=== PATIENT | male | born 1985 | race Hispanic/Latino ===

== ENCOUNTER 2023-10-19 22:39 | Emergency (ER) | payer SELFPAY ==
[2023-10-19 22:45] VITALS: BP 130/95
--- NOTE | 2023-10-19 23:42 | ED.GENMED ---
History of Present Illness
General
Chief Complaint: Abdominal Symptoms
Source: patient
Time Seen by Provider: 10/19/23 23:31
Travel History
Have you had any contact with someone who has COVID-19?: No
Do you have any symptoms of coronavirus? Fever > 100 degrees, chills, cough, shortness of breath, sore throat, loss of taste or smell, muscle aches, or headache?: No
History of Present Illness
History of Present Illness:
37-year-old male with known medical history of alcohol abuse, well-known to this emergency, uses 2 different names when coming to this emergency stating tonight he has had nausea vomiting and diarrhea for the last few days, chills and generally
feeling unwell. Patient that he continues to drink all daily stating he had 2 drinks this evening. No known sick contacts, recent travel or recent antibiotics. Patient has no other physical concerns. He has been seen by our [facility] and case
management team multiple times on previous visits and has declined treatment or has been ineligible for any further treatment in the past
Past History
Past History
ED Past Medical History: Other (Left ankle fracture September 2017)
ED Past Surgical History: None
Social History
Tobacco: Non-smoker
Alcohol: Chronic alcoholic
Drug: None
Personal:
Living: with family
Employment: Employed
Family History
Family History: Other (Noncontributory)
Review of Systems
Review of Systems
All Other Systems: ROS reviewed and negative except as documented in HPI and ROS
Phy Exam
Physical Exam
Physical Exam:
GENERAL: Alert , in no apparent distress, intoxicated
EYE: clear conjunctiva b/l
HEAD: NCAT
ENT: o/p clr, mmm.
CARDIAC: Regular rate and rhythm .
LUNGS: Clear breath sounds bilaterally, no acute respiratory distress, no wheezes/rales/rhonchi
ABDOMEN: Soft, without focal tenderness, no r/g, no cvat
NEUROLOGICAL: Alert and oriented
SKIN: Warm and dry, skin intact.
MUSCULOSKELETAL: No edema, well perfused.
PSYCH: Normal and appropriate interaction.
Course
Orders/Labs/Results
Orders:
Orders
10/19/23 23:36
0.9% Sodium Chloride 1000 ml [Nss] 1,000 ml IV BOLUS
10/19/23 23:57
Complete Blood Count/With Diff Urgent
Comprehensive Metabolic Panel Urgent
Lipase Urgent
Abnormal Lab Results
10/19/23
23:57
RBC 4.67 L 10^6/uL
(4.70-6.10)
Hgb 12.6 L g/dL
(13.0-18.0)
Hct 36.8 L %
(39.0-52.0)
MCV 78.8 L fL
(80.0-94.0)
RDW 16.0 H %
(11.5-14.5)
Potassium 3.3 L mmol/L
(3.5-5.1)
BUN 5 L mg/dl
(9-20)
Creatinine 0.5 L mg/dL
(0.7-1.3)
Glucose 150 H mg/dl
(70-99)
AST 72 H U/L
(17-59)
ALT 84 H U/L
(0-50)
Total Protein 8.3 H g/dl
(6.3-8.2)
10/19/23 23:57
10/19/23 23:57
Vital Signs
Initial and Last Documented VS:
Initial Vital Signs
Temp Pulse Resp BP Pulse Ox
98.6 F 105 18 130/95 96
10/19/23 22:45 10/19/23 22:45 10/19/23 22:45 10/19/23 22:45 10/19/23 22:45
Last Documented Vital Signs
Temp Pulse Resp BP Pulse Ox
98.6 F 105 18 130/95 96
10/19/23 22:45 10/19/23 22:45 10/19/23 22:45 10/19/23 22:45 10/19/23 22:45
MDM/Problems Addressed
Differential Diagnosis Includes:
Alcohol abuse, alcoholic gastritis, GERD, pancreatitis
MDM/Problems Addressed:
37-year-old male presenting emergency department for evaluation of reported nausea vomiting and diarrhea. Patient has been seen here multiple times for similar. He arrives clearly intoxicated and his symptoms are still likely related to his
chronic alcohol use. Will check labs and treat with 1 L of IV fluids. Anticipate discharge following completion of fluids.
*Pulse Oximetry
Patient hypoxic: no
*Critical Care Note
Total Time (30-74mins, 75-104mins- exclusive of procedures): Not Applicable
Data Reviewed
Review of Other/Old Records Reveals: Labs and Records
Source: patient and records
Comment
Comment:
Patient's labs baseline. Mild LFT elevation secondary to chronic alcohol use. Patient tolerating p.o. Remains hemodynamically stable. Stable for discharge home.
ED Attending Note
-
Portions of this chart may have been created with voice recognition software.� Occasional wrong word or��sound alike� substitutions may have occurred due to the inherent limitations of voice recognition software.
Discharge Plan
Departure
Patient Disposition: Home (Routine Discharge)
Date of Disposition: 10/20/23
Time of Disposition: 00:20
Patient with high blood pressure during this ER visit?: Yes
Discharge Problem:
Abdominal pain
Instructions: Abdominal Pain
Referrals:
[facility] [Outside]
UNKNOWN - PT DOES,NOT KNOW [Family Provider] -
Interventions
Interventions:
*Risk Screen - Suicide Last Done: 10/19/23 22:45
*General Assessment Last Done: 10/19/23 22:45
*Neglect/Abuse Screening Last Done: 10/19/23 22:45
*ED COVID-19 Vaccine History Last Done: 10/20/23 00:01
MP-[facility]wybz-Ljkepdoah[facility] Assessment Last Done: 10/20/23 00:01
[2023-10-19] MEDS: NSS 1000 IV (23:57)
[2023-10-20 00:01] VITALS: BMI 28.0
[2023-10-20 00:06] LABS: % Basophils 0.8 % (0-2); % Eosinophils 0.6 % (0-6); % Immature Granulocytes 0.3 % (0-0.5); % Monocytes 8.9 % (1.7-9.3); % Neutrophils 47.4 % (42.2-75.2); Absolute Basophils 0.1 10^3/uL (0-0.2); Absolute Monocytes 0.6 10^3/uL (0.1-0.6); Absolute Neutrophils 3.4 10^3/uL (1.4-6.5); Hematocrit 36.8 % (39.0-52.0); Hemoglobin 12.6 g/dL (13.0-18.0); Mean Corp Hgb Conc. 34.2 g/dL (33.0-37.0); Mean Corpuscular Volume 78.8 fL (80.0-94.0); Mean Platelet Volume 8.8 fL (7.4-10.4); Nucleated Red Blood Cells % 0 % (-); Platelet Count 295 10^3/uL (130-400); Red Blood Cell Count 4.67 10^6/uL (4.70-6.10); White Blood Cell Count 7.2 10^3/uL (4.8-10.8)
[2023-10-20 00:19] LABS: ALT (SGPT) 84 U/L (0-50); AST (SGOT) 72 U/L (17-59); Albumin 4.8 g/dl (3.5-5.0); Alkaline Phosphatase 103 U/L (38-126); Blood Urea Nitrogen 5 mg/dl (9-20); Calcium 9.1 mg/dl (8.4-10.2); Carbon Dioxide 23 mmol/L (22-30); Chloride 107 mmol/L (98-107); Estimated Creatinine Clearance > 125 ml/min; Glucose 150 mg/dl (70-99); Lipase 106 U/L (23-300); Potassium 3.3 mmol/L (3.5-5.1); Sodium 143 mmol/L (135-145); Total Bilirubin 0.4 mg/dl (0.2-1.3); Total Protein 8.3 g/dl (6.3-8.2); eGFR > 60.00
== END 2023-10-20 00:25 | disposition home or self-care (01) ==
LOC: EMR 22:39
PROVIDERS: Physician Assistant Medical; EMERGENCY PHYSICIAN Emergency Medicine
DX: R10.9 Unspecified abdominal pain (principal); R11.2 Nausea with vomiting, unspecified; R19.7 Diarrhea, unspecified; R03.0 Elevated blood-pressure reading, without diagnosis of hypertension; F10.90 Alcohol use, unspecified, uncomplicated
CPT/HCPCS: 99284; 80053; 83690; 85025

== ENCOUNTER 2024-08-04 10:31 | Inpatient (IN) | payer MEDICAID, SELFPAY ==
[2024-08-04] VITALS (9 sets, daily range): BP systolic 109–130; BP diastolic 70–97; BMI 23.4
[2024-08-04 03:09] LABS: Hematocrit 39.7 % (39.0-52.0); Hemoglobin 14.4 g/dL (13.0-18.0); Mean Corp Hgb Conc. 36.3 g/dL (33.0-37.0); Mean Corpuscular Hgb 28.8 pg (27.0-31.0); Mean Corpuscular Volume 79.4 fL (80.0-94.0); Mean Platelet Volume 10.5 fL (7.4-10.4); Platelet Count 240 10^3/uL (130-400); White Blood Cell Count 9.7 10^3/uL (4.8-10.8)
[2024-08-04 03:20] LABS: Blood Urea Nitrogen 16 mg/dl (9-20); Calcium 9.9 mg/dl (8.4-10.2); Carbon Dioxide 16 mmol/L (22-30); Chloride 95 mmol/L (98-107); Glucose 598 mg/dl (70-99); Potassium 3.6 mmol/L (3.5-5.1); Sodium 133 mmol/L (135-145); eGFR > 60.00
[2024-08-04] MEDS: NSS 1000 IV ×3 (05:01→06:15)
[2024-08-04 05:50] LABS: Blood Urea Nitrogen 14 mg/dl (9-20); Carbon Dioxide 22 mmol/L (22-30); Chloride 95 mmol/L (98-107); Glucose 485 mg/dl (70-99); Potassium 3.8 mmol/L (3.5-5.1); Sodium 134 mmol/L (135-145); eGFR > 60.00
[2024-08-04 05:57] LABS: B-Hydroxybutyrate 2.85 mmol/L (0.02-0.27)
--- NOTE | 2024-08-04 06:12 | ED.GENMED ---
History of Present Illness
General
Chief Complaint: Blood Sugar Problem
Source: patient
Exam Limitations: none
Time Seen by Provider: 08/04/24 06:07
Nursing documentation reviewed up to this point in time: agreed with
History of Present Illness
History of Present Illness:
Pleasant 38-year-old male with a history of diabetes and alcohol abuse presents to the emergency department with lightheadedness and nosebleeds. Patient admits to being a former alcoholic but states he has not had a drink in 3 months. Patient
denies fever or chills. History is limited due to patient's condition. Patient is a very poor historian.
Past History
Past History
ED Past Medical History: Other (Left ankle fracture September 2017)
ED Past Surgical History: None
Social History
Tobacco: Non-smoker
Alcohol: Chronic alcoholic
Drug: None
Personal:
Living: with family
Employment: Employed
Family History
Family History: Other (Noncontributory)
Review of Systems
Review of Systems
Allergies reviewed?: Yes
All Other Systems: ROS reviewed and negative except as documented in HPI and ROS
Constitutional: Reports fatigue and night sweats
EENT: Reports no symptoms
Respiratory: Reports no symptoms
Cardiac: Reports no symptoms
ABD/GI: Reports no symptoms
: Reports no symptoms
Musculoskeletal: Reports no symptoms
Skin: Reports no symptoms
Neurological: Reports no symptoms
Endocrine: Reports no symptoms
Hematologic/Lymphatic: Reports no symptoms
Psychiatric: Reports anxiety
Phy Exam
General Physical Exam
General Presentation: well appearing and no apparent distress
General Skin: warm and dry
General Habitus: normal
General Mental: alert
General Hydration: appears well hydrated
ENT Exam
ENT Exam: EOMI, pharynx normal, neck supple and normocephalic
Eye Exam
Eye Exam: PERRL, cornea clear and conjunctiva normal
Cardiovascular Exam
Cardiovascular Exam: regular rate/rhythm, no edema, no murmur and normal peripheral pulses
Pulmonary Exam
Pulmonary Exam: lungs clear, no respiratory distress, no rales, no crackles, no rhonchi, no stridor, no wheezing and no cough
Gastrointestinal Exam
Gastrointestinal Exam: normal bowel sounds, non tender, soft, no organomegaly, no pulsatile mass and non distended
Neurological Exam
Neurological Exam: alert, oriented x3, no motor deficits and speech normal
Musculoskeletal Exam
Musculoskeletal Exam: full ROM and no edema
Skin Exam
Skin Exam: normal color, warm/dry, no rash and no petechia
Psychiatric Exam
Psychiatric Exam: normal mood/affect
Course
Orders/Labs/Results
Orders:
Orders
08/04/24 02:18
BMP [Basic Metabolic Panel] Urgent
Complete Blood Count/No Diff Urgent
08/04/24 04:34
Urinalysis Urgent
0.9% Sodium Chloride 1000 ml [Nss] 1,000 ml IV BOLUS
0.9% Sodium Chloride 1000 ml [Nss] 1,000 ml IV BOLUS
08/04/24 04:35
Bedside Glucose- Treatment Q1H
IV Insert/Care/Rem.- Treatment PRN
08/04/24 04:52
B-Hydroxybutyrate Urgent
Basic Metabolic Panel Q2H
Glycohemoglobin (HgbA1c) Urgent
08/04/24 06:10
Insulin Human Regular [Novolin R] 6 units IV NOW STA
08/04/24 06:11
Bedside Glucose- Treatment Q1H
IV Insert/Care/Rem.- Treatment PRN
08/04/24 06:14
0.9% Sodium Chloride 1000 ml [Nss] 1,000 ml IV ONCE
08/04/24 06:15
Basic Metabolic Panel Q2H
08/04/24 06:45
Basic Metabolic Panel Q2H
08/04/24 08:15
Basic Metabolic Panel Q2H
08/04/24 08:45
Basic Metabolic Panel Q2H
08/04/24 10:15
Basic Metabolic Panel Q2H
Abnormal Lab Results
08/04/24 08/04/24
02:18 04:52
MCV 79.4 L fL
(80.0-94.0)
MPV 10.5 H fL
(7.4-10.4)
Sodium 133 L mmol/L 134 L mmol/L
(135-145) (135-145)
Chloride 95 L mmol/L 95 L mmol/L
(98-107) (98-107)
Carbon Dioxide 16 L mmol/L
(22-30)
Creatinine 0.5 L mg/dL 0.4 L mg/dL
(0.7-1.3) (0.7-1.3)
Glucose 598 H* mg/dl 485 H* mg/dl
(70-99) (70-99)
B-Hydroxybutyrate 2.85 H mmol/L
(0.02-0.27)
08/04/24 02:18
Vital Signs
Initial and Last Documented VS:
Initial Vital Signs
Temp Pulse Resp BP Pulse Ox
99.6 F 122 22 130/94 97
08/04/24 02:08 08/04/24 02:08 08/04/24 02:08 08/04/24 02:08 08/04/24 02:08
Last Documented Vital Signs
Temp Pulse Resp BP Pulse Ox
99.6 F 97 19 111/81 98
08/04/24 02:08 08/04/24 05:15 08/04/24 05:15 08/04/24 05:00 08/04/24 05:15
MDM/Problems Addressed
Chronic conditions affecting care:
Alcoholism, diabetes
Chronic conditions affecting care: DM
*Pulse Oximetry
Patient hypoxic: no
*Critical Care Note
Total Time (30-74mins, 75-104mins- exclusive of procedures): 30
comment:
Critical care statement: A total of 30 minutes of critical care time was provided for this patient. This time is separate from time utilized to perform the aforementioned documented procedures. Aggregate critical care time includes only time
during which I was engaged in work directly related to the patient's care, as described above, whether at the bedside or elsewhere in the Emergency Department.
Data Reviewed
Review of Other/Old Records Reveals: Labs and Records
Source: patient and staff auditor
ED Attending Note
-
Portions of this chart may have been created with voice recognition software.� Occasional wrong word or��sound alike� substitutions may have occurred due to the inherent limitations of voice recognition software.
Discharge Plan
Departure
Patient Disposition: Admit
Date of Disposition: 08/04/24
Time of Disposition: 07:02
Admit to: ICU
Presentation/result/management discussed w/ accepting MD/DO: Hospitalist
Discharge Problem:
DKA (diabetic ketoacidosis)
Instructions: Type 2 Diabetes (DC)
Prescriptions:
No Action
No Current Medications
0
Referrals:
NONE,* [Family Provider] -
Interventions
Interventions:
*Risk Screen - Suicide Last Done: 08/04/24 02:08
*General Assessment Last Done: 08/04/24 05:00
*Neglect/Abuse Screening Last Done: 08/04/24 02:08
ED- Fall Risk Assessment Last Done: 08/04/24 05:00
*ED COVID-19 Vaccine History Last Done: 08/04/24 05:00
ED- Neurological Assessment Last Done: 08/04/24 05:00
ED-EENT Assessment Last Done: 08/04/24 05:29
ED- Cardiac Assessment Last Done: 08/04/24 05:00
ED Swallowing Screen Last Done: 08/04/24 05:29
Discharge Date and Time
Print Language: CAMEROONIAN
[2024-08-04] MEDS: NOVOLIN R 6 UNITS IV (06:17)
[2024-08-04 07:38] LABS: Venous Blood Gas B.E. -3.8 mmol/L (-4 to +4); Venous Blood Gas HCO3 21.5 mmol/L (22-27); Venous Blood Gas O2 Sat % 99.4 %; Venous Blood Gas pCO2 39 mmHg (35-48); Venous Blood Gas pH 7.35 (7.32-7.43); Venous Blood Gas pO2 183 mmHg (30-50)
[2024-08-04 07:38] LABS: Alcohol None Detected; Blood Urea Nitrogen 11 mg/dl (9-20); Calcium 8.2 mg/dl (8.4-10.2); Carbon Dioxide 21 mmol/L (22-30); Chloride 105 mmol/L (98-107); Glucose 322 mg/dl (70-99); Lipase 229 U/L (23-300); Potassium 3.7 mmol/L (3.5-5.1); Sodium 138 mmol/L (135-145); eGFR > 60.00
[2024-08-04 07:56] LABS: COVID-19 Antigen Negative (Negative)
--- NOTE | 2024-08-04 08:13 | HPS.HSE ---
Addendum entered and electronically signed by Ge Gee MD 08/04/24 12:55:
#nasal bleeds 2/2 nasal spur
Outpatient ENT
Original Note:
Family Physician
-
Family Physician: * NONE
Chief Complaint
-
nosebleeds
History of Present Illness
38yo M with PMHx of alcohol abuse came with c/o nosebleeds, recurent not precipitated by trauma. No nosebleed seen on assessment. Found hyperglycemic in ED without significant acidosis. No PMHX of diabetes.
Patient does report years of intermittent nosebleeds. No family hx of bleeding d/o. He lives in [facility] and visiting here for friends, however after arrival to the area - he cannot get in touch with them. Was not eating well over past few days.
Patient denied alcohol use for past month
Medical History
Past Medical History
Past Medical History: Reports Other
Additional Past Medical History:
see HPI
Past Surgical History: Reports None
Social History
Tobacco: Non-smoker
Alcohol: Chronic Alcoholic
Drug: None
Family History
Family History: Not pertinent
Allergies / Home Medications
Allergies reflects when Allergies were last updated in [facility].
Home Medications with original date entered in [facility]
Allergy/Medication List:
Allergies
Allergy/AdvReac Type Severity Reaction Status Date / Time
No Known Allergies Allergy Verified 08/04/24 02:12
Home Medications
No Meds [No Current Medications] 08/04/24
Review of Systems
-
A 12 point ROS was completed and negative except as noted: Yes
Constitutional: Reports No Symptoms
EENT: Reports See HPI
Physical Exam
Vital Signs
Vital Signs
Temp Pulse Resp BP Pulse Ox
99.6 F 84 19 112/86 98
08/04/24 02:08 08/04/24 07:45 08/04/24 07:30 08/04/24 07:00 08/04/24 07:45
Physical Exam
General: Well Developed, Well Nourished and No Apparent Distress
HEENT: NormoCephalic, Anicteric and Moist mucous membranes
Respiratory: Clear; No Wheezes, Rales or Rhonchi
Cardiac: S1/S2 and Regular Rhythm; No Murmur
GI: Soft, Non Tender and Non Distended
Rectal: No Red or Maroon Stools
Genito-urinary: Clear Urine
Musculoskeletal: No Clubbing, No Cyanosis and No Edema
Skin: Warm; No Dry, Rash or Jaundice
Neuro: Awake, Alert, Oriented, AO x 3 and No Motor Deficits
Psych: Calm
Laboratory Results
-
08/04/24 02:18
Laboratory Results
Lipase 229 U/L (23-300) 08/04/24 07:12
Data Reviewed
-
Lab Data: Labs Reviewed by me
Impression/Plan
-
A/P:
#Ketosis without aidosis with hyperglycemia
Insulin SS, Accuchecks, check HGBA1c, start DM diet
Check serum alcohol level
start Lantus 5units
home regimen based on HgbA1c
DM RN consult
#Frequent nosebleeds
check coagulation panel
Check CT of the sinuses
#Alcohol abuse
check Urine drug screen
If alcohol level elevated - MSAS protocol
start thiamine/Folate
multivitamins
#Hx of transaminitis
check HepC Ab
follow LFT
#Dizziness without vertigo
PT/OT
DVT ppx SCDs
Full code
I have spent at least 79min reviewing chart, test results, communication with cosnultants and direct patient care
[2024-08-04 08:23] LABS: ALT (SGPT) 37 U/L (0-50); AST (SGOT) 33 U/L (17-59); Alkaline Phosphatase 217 U/L (38-126); Direct Bilirubin 0.1 mg/dl (0.0-0.4); Total Bilirubin 0.3 mg/dl (0.2-1.3); Total Protein 6.6 g/dl (6.3-8.2)
[2024-08-04] MEDS: LANTUS 0.05 UNITS SC (08:43)
[2024-08-04 08:49] LABS: Glucose - Point of Care 294 mg/dl (70-99)
[2024-08-04 09:17] LABS: Blood Urea Nitrogen 9 mg/dl (9-20); Calcium 8.2 mg/dl (8.4-10.2); Carbon Dioxide 20 mmol/L (22-30); Chloride 103 mmol/L (98-107); Estimated Creatinine Clearance > 125 ml/min; Glucose 297 mg/dl (70-99); Potassium 3.7 mmol/L (3.5-5.1); Sodium 136 mmol/L (135-145); eGFR > 60.00
[2024-08-04 09:24] LABS: INR 0.97; PT 13.3 Sec (11.4-14.6)
[2024-08-04 09:25] LABS: APTT 25.2 Sec (23.4-35.0)
[2024-08-04 09:26] LABS: Urine Albumin Negative (Neg - Trace); Urine Bilirubin Negative (Negative); Urine Character Clear (Clear); Urine Color Yellow; Urine Glucose 3+ (Negative); Urine Ketone 3+ (Negative); Urine Leukocyte Negative (Negative); Urine Nitrite Negative (Negative); Urine Occult Blood Negative (Negative); Urine Specific Gravity 1.015 (<1.030); Urine Urobilinogen Negative (Neg - 1+)
[2024-08-04 09:45] LABS: Amphetamines Negative (Negative); Barbiturates Negative (Negative); Benzodiazepines Negative (Negative); Buprenorphine Negative (Negative); Cocaine Negative (Negative); Marijuana Negative (Negative); Methadone Negative (Negative); Methamphetamines Negative (Negative); Opiates Negative (Negative); Phencyclidine Negative (Negative); Tricyclic Antidepressants Negative (Negative)
[2024-08-04 10:41] LABS: Glycohemoglobin (HgbA1c) 15.4 % (4.0-5.6)
[2024-08-04 12:00] LABS: Glucose - Point of Care 251 mg/dl (70-99)
[2024-08-04] MEDS: NOVOLOG FLEXPEN-MODERATE RESISTANCE 5 UNITS SC (12:02)
[2024-08-04 12:29] LABS: Blood Urea Nitrogen 7 mg/dl (9-20); Calcium 8.4 mg/dl (8.4-10.2); Carbon Dioxide 20 mmol/L (22-30); Chloride 104 mmol/L (98-107); Estimated Creatinine Clearance > 125 ml/min; Glucose 255 mg/dl (70-99); Potassium 3.8 mmol/L (3.5-5.1); Sodium 137 mmol/L (135-145); eGFR > 60.00
[2024-08-04] MEDS: LR 1000 IV (14:24)
[2024-08-04 15:56] LABS: Venous Blood Gas B.E. -1.9 mmol/L (-4 to +4); Venous Blood Gas HCO3 22.2 mmol/L (22-27); Venous Blood Gas O2 Sat % 98.1 %; Venous Blood Gas pCO2 35 mmHg (35-48); Venous Blood Gas pH 7.41 (7.32-7.43); Venous Blood Gas pO2 145 mmHg (30-50)
[2024-08-04 16:09] LABS: Blood Urea Nitrogen 7 mg/dl (9-20); Calcium 8.7 mg/dl (8.4-10.2); Carbon Dioxide 21 mmol/L (22-30); Chloride 101 mmol/L (98-107); Estimated Creatinine Clearance > 125 ml/min; Glucose 307 mg/dl (70-99); Potassium 3.7 mmol/L (3.5-5.1); Sodium 135 mmol/L (135-145); eGFR > 60.00
[2024-08-04 16:15] LABS: B-Hydroxybutyrate 2.39 mmol/L (0.02-0.27)
[2024-08-04 16:53] LABS: Glucose - Point of Care 242 mg/dl (70-99)
--- NOTE | 2024-08-04 17:30 | PTCARENOTE ---
Pt admitted into room 428. Pt ambulated with standby assist and steady gait. Pt instructed to use call dominguez to ring for assistance when getting OOB. VSS. Pt oriented to room. Blood sugar 242.
[2024-08-04] MEDS: NOVOLOG FLEXPEN-HIGH RESISTANCE 4 UNITS SC (17:43)
[2024-08-04] MEDS: NOVOLOG FLEXPEN 5 UNITS SC (17:43)
[2024-08-04 21:04] LABS: Glucose - Point of Care 292 mg/dl (70-99)
[2024-08-04] MEDS: LANTUS 0.1 UNITS SC (21:33)
[2024-08-05] MEDS: LR IV ×2 (01:58→14:53)
[2024-08-05] MEDS: LR 1000 IV (01:58)
[2024-08-05 07:42] VITALS: BP 99/72
[2024-08-05 07:57] LABS: Glucose - Point of Care 211 mg/dl (70-99)
[2024-08-05 08:45] VITALS: BP 118/75; PULSE 80; O2SAT 100
[2024-08-05 08:53] LABS: Hematocrit 36.9 % (39.0-52.0); Hemoglobin 12.9 g/dL (13.0-18.0); Mean Corpuscular Hgb 28.5 pg (27.0-31.0); Mean Corpuscular Volume 81.5 fL (80.0-94.0); Mean Platelet Volume 10.4 fL (7.4-10.4); Platelet Count 197 10^3/uL (130-400); Red Blood Cell Count 4.53 10^6/uL (4.70-6.10); Red Cell Dist. Width 14.4 % (11.5-14.5); White Blood Cell Count 5.2 10^3/uL (4.8-10.8)
[2024-08-05] MEDS: NOVOLOG FLEXPEN-HIGH RESISTANCE 4 UNITS SC (08:58)
[2024-08-05] MEDS: FOLVITE 1 MG PO (09:02)
[2024-08-05] MEDS: VITAMIN B1 100 MG PO (09:02)
[2024-08-05] MEDS: THERAGRAN 1 TABLET PO (09:02)
[2024-08-05] MEDS: NOVOLOG FLEXPEN 5 UNITS SC ×2 (09:04→12:40)
[2024-08-05 09:30] LABS: ALT (SGPT) 42 U/L (0-50); AST (SGOT) 46 U/L (17-59); Albumin 3.8 g/dl (3.5-5.0); Alkaline Phosphatase 105 U/L (38-126); Blood Urea Nitrogen 8 mg/dl (9-20); Calcium 8.7 mg/dl (8.4-10.2); Carbon Dioxide 24 mmol/L (22-30); Chloride 99 mmol/L (98-107); Estimated Creatinine Clearance > 125 ml/min; Glucose 219 mg/dl (70-99); Magnesium 1.7 mg/dl (1.6-2.3); Sodium 134 mmol/L (135-145); Total Bilirubin 0.7 mg/dl (0.2-1.3); Total Protein 6.3 g/dl (6.3-8.2); eGFR > 60.00
[2024-08-05 10:46] LABS: Potassium 3.3 mmol/L (3.5-5.1)
--- NOTE | 2024-08-05 11:17 | CM ---
CM reviewed chart, patient seen bedside, initial assessment completed. Patient resides with his friend in a one story home in [place]. Patient reports he is here visiting friends, in planning on return to [place] today or tomorrow. Patient reports
he will call a friend upon discharge, patient reports using public transportation in [place]. Patient is independent with ADLS/IADLs. Patient provided copies of insurance cards, CM will provide to admissions to scan into system. Patient would like
to be discharged with paper scripts to fill scripts in [facility]. CM will continue to follow for all discharge planning needs.
Plan; home with paper scripts.
[2024-08-05 11:27] LABS: Glucose - Point of Care 285 mg/dl (70-99)
[2024-08-05] MEDS: NOVOLOG FLEXPEN-HIGH RESISTANCE 7 UNITS SC (12:39)
--- NOTE | 2024-08-05 12:44 | PTCARENOTE ---
This RN witnessed pt applying needle ti insulin pen, dialing up correct amount of insulin per order, cleaning injection site and administering insulin. Pt states no concerns about administering insulin.
--- NOTE | 2024-08-05 13:19 | PTCARENOTE ---
Nemesio stated he was diagnosed with diabetes 6 months ago and was instructed to check blood sugars and inject insulin via a pen. He stated he did not take the insulin or check his blood sugars as recommended. I reviewed diabetes management and
explained importance of taking insulin and monitoring blood glucose levels to maintain safe glucose levels. We reviewed hyperglycemia and symptoms. He verbalized he frequently had increased thirst, fatigue and urination. I reviewed the different
types of insulin he was currently taking; rapid and long acting. He demonstrated proper injection technique with the Novolog Flexpen prior to lunch. I also reviewed use of the vial and syringe and he was able to demonstrate drawing up and injecting
with a sample vial and syringe. Recognition and treatment of hypolgycemia was reviewed and I encouraged him to wear medical identification. Monitoring blood sugars were also reinforced and Nemesio was able to check a finger stick blood sugar on a
Contour Next Gen glucometer. Nemesio was provided with written material for managing diabetes, injecting insulin and low blood sugar management.
--- NOTE | 2024-08-05 13:34 | W.PN.HOSP.TC ---
Today's Communication/Plan
-
await DC this evening
Assessment / Plan
Assessment / Plan
Assessment:
Type 2 DM, new diagnosis
- poorly controlled; A1c is 15.4%
- ASSOCIATE TECHNICIAN consulted. Continue basal/bolus, consider BID dosing if compliance a concern
- Diabetes education consult for meter, meter instruction
- dietary restrictions, education
Chronic nosebleeds
- CT: Moderate nasoseptal deviation to the right with prominent rightward projecting nasal spur from the mid septum measuring approximately 5 x 8 mm.
- nasal spur likely cause of epistaxis
- coags normal
Hypokalemia
- replete prn
Alcohol abuse
- UDS clear
- continue thiamine/Folate/MV
Dizziness without vertigo
- likely from hyperglycemia acutely
DVT ppx: SCDs
Code: Full
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
Anticipated Discharge: Today
Subjective/Interval History
-
Date of Service: August 05, 2024
resting comfortably
no complaints
Objective Data
-
Labs:
Laboratory Results
08/05/24
07:49
WBC 5.2
Hgb 12.9 L
Hct 36.9 L
Plt Count 197
Sodium 134 L
Potassium 3.3 L
Chloride 99
Carbon Dioxide 24
BUN 8 L
Creatinine 0.4 L
Glucose 219 H
Calcium 8.7
Total Bilirubin 0.7
AST 46
ALT 42
Alkaline Phosphatase 105
Vital Signs:
Vital Signs
Temp Pulse Resp BP Pulse Ox
97.8 F 67 20 99/72 98
08/05/24 07:42 08/05/24 07:42 08/05/24 07:42 08/05/24 07:42 08/05/24 07:42
I&O
08/04/24 08/05/24 08/06/24
06:59 06:59 06:59
Intake Total 480 / 480
Balance 480 / 480
Physical Exam
-
General: No Apparent Distress
HEENT: Normocephalic and Atraumatic
Respiratory: Negative Wheezes
Cardiac: Regular Rhythm and S1/S2
GI: Soft and Nontender
Neuro: AO x 3
Hematologic / Lymphatic: No Lymphadenopathy
Psych: Calm
Data Reviewed
-
Total Time Spent with Patient (in minutes): 45
Labs: Labs Reviewed by me
--- NOTE | 2024-08-05 14:23 | PN.DE.MGMTRT ---
Insulin Management
- -
08/05/2024 Diabetes Management Consult
Patient admitted 08/03 with nosebleed. Glucose on admission 598, no acidosis. PMH alcohol abuse, nosebleeds. Prior to admission was taking no medications.
Patient is awake alert and oriented oob in chair able to discuss diabetes care plan. States he was to a doctor 5 months ago and had no medical issues. A1C on admission 15.4, cr .4 eGFR > 60.
Patient was started on lantus 10 units @ hs, fasting glucose 219; will increase HS lantus to 15 units. Pre meal glucose 251 to 285 on novolog 5 units requiring up to 7 units corrective insulin. Will increase AC novolog to 9 units and reduce
corrective from high to moderate.
Prescriptions for insulins pen needles, contour test strips and lancets in ambulatory orders.
Discussed with patients nurse and Dr. Yi
Diabetes History
- -
Type of Diabetes: 2 requiring insulin
Pre-Admission Diabetes Regimen
08/04/24 08/05/24
15:48 07:49
Creatinine 0.4 L 0.4 L
Lab Results
Hemoglobin A1c 15.4 % (4.0-5.6) H 08/04/24 04:52
Insulin Pump Settings
IP Diabetes Regimen
08/04/24 08/04/24 08/04/24
15:48 16:52 21:02
Glucose 307 H
POC Glucose 242 H 292 H
08/05/24 08/05/24 08/05/24
07:49 07:55 11:25
Glucose 219 H
POC Glucose 211 H 285 H
Meal type: Lunch
Amount consumed: 70%
Patient Education
--- NOTE | 2024-08-05 14:33 | W.DS.TRANS ---
DC Summary - Primary Class Teacher
-
Discharge Instructions:
Discharge Diagnosis/Procedures type 2 diabetes
Diet Diabetic, Carb Controlled
Activity As tolerated
Instructions:
Stand-Alone Forms:
Changes to Home Medications: No
Discharge Medications:
DC Medications w/original date entered in [facility]
blood sugar diagnostic (Contour Next Test Strips) #200 ea 08/05/24
insulin aspart U-100 100 unit/mL (3 mL) subcutaneous pen (Novolog FlexPen U-100 Insulin aspart) 9 unit (0.09 mL) SC AC #5 ea 08/05/24
insulin glargine 100 unit/mL (3 mL) subcutaneous pen (Lantus Solostar U-100 Insulin) 15 unit (0.15 mL) SC HS #5 ea 08/05/24
lancets 21 gauge (Color Lancets) #200 ea 08/05/24
pen needle, diabetic 32 gauge x 5/32' (BD Ultra-Fine Isabella Pen Needle) #200 ea 08/05/24
Home Medication Changes
Pending Results: No
Total time spent discharging patient (in min): 41
[2024-08-05 15:01] VITALS: BP 128/90
[2024-08-05 15:29] VITALS: BP 128/90
[2024-08-05] MEDS: NOVOLOG FLEXPEN 9 UNITS SC (16:21)
[2024-08-05] MEDS: NOVOLOG FLEXPEN-MODERATE RESISTANCE 1 UNITS SC (16:21)
[2024-08-05 16:22] LABS: Glucose - Point of Care 198 mg/dl (70-99)
[2024-08-05 19:01] LABS: Hepatitis C Antibody Negative (Negative)
== END 2024-08-05 17:30 | disposition home or self-care (01) | DRG 639 ==
LOC: 4 WEST ACU 10:31
PROVIDERS: ADMITTING PHYSICIAN Internal Medicine; ATTENDING PHYSICIAN Internal Medicine; EMERGENCY PHYSICIAN Student in an Organized Health Care Education/Training Program
DX: E11.10 Type 2 diabetes mellitus with ketoacidosis without coma (principal); R04.0 Epistaxis; J34.2 Deviated nasal septum; J34.89 Other specified disorders of nose and nasal sinuses; E87.6 Hypokalemia; F10.21 Alcohol dependence, in remission
CPT/HCPCS: 70487; 71046; 76700; 80048; 80053; 80306; 81003; 82010; 82077; 82248; 82805; 82962; 83036; 83690; 83735; 85027; 85610; 85730; 86803; 87502; 87811; 96361; 96374; 97161; 97165; 99291; Q9967

== ENCOUNTER 2024-10-02 20:25 | Emergency (ER) | payer MEDICAID, SELFPAY ==
[2024-10-02 20:30] LABS: Glucose - Point of Care 247 mg/dl (70-99)
[2024-10-02 21:00] VITALS: BP 100/74
--- NOTE | 2024-10-02 21:25 | ED.GENMED ---
History of Present Illness
General
Chief Complaint: Alcohol Problem
Source: patient
Exam Limitations: none
Time Seen by Provider: 10/02/24 21:14
History of Present Illness
History of Present Illness:
38yoM with a history of diabetes presenting via EMS for evaluation of alcohol intoxication. Patient was found sleep at [facility] this evening. 911 was called due to concern regarding possible overdose. Patient was visibly intoxicated on police
arrival and he admits to drinking 8-9 alcoholic drinks this evening. He was given the option to come to the ED or to be arrested for public intoxication and patient opted to come to the ED. He has no other complaints at this time. He is not
interested in detox/rehab.
Past History
Past History
ED Past Medical History: Other (Left ankle fracture September 2017)
ED Past Surgical History: None
Social History
Tobacco: Non-smoker
Alcohol: Chronic alcoholic
Drug: None
Personal:
Living: with family
Employment: Employed
Family History
Family History: Other (Noncontributory)
Phy Exam
Physical Exam
Physical Exam:
Awake, alert, mild slurring of words consistent with mild intoxication
General Physical Exam
General Presentation: well appearing and no apparent distress
General age: appears stated age
General Skin: warm and dry
General Habitus: normal
General Mental: alert
ENT Exam
ENT Exam: normocephalic
Pulmonary Exam
Pulmonary Exam: no respiratory distress
Neurological Exam
Neurological Exam: alert
Deborah Coma Scale
Eye Opening: Spontaneous
Verbal Response: Oriented
Motor Response: Obeys Commands
GCS Total Score: 15
Skin Exam
Skin Exam: normal color and warm/dry
Psychiatric Exam
Psychiatric Exam: normal mood/affect
Scores
Withdrawal Assessment of Alcohol
Withdrawal Assessment Completed?: Not applicable
Course
Orders/Labs/Results
Orders:
Abnormal Lab Results
10/02/24
20:29
POC Glucose 247 H mg/dl
(70-99)
Vital Signs
Initial and Last Documented VS:
Initial Vital Signs
Temp
97.9 F
10/02/24 20:30
Last Documented Vital Signs
Temp Pulse BP Pulse Ox
97.9 F 91 100/74 99
10/02/24 20:30 10/02/24 21:09 10/02/24 21:00 10/02/24 22:06
MDM/Problems Addressed
Differential Diagnosis Includes:
38yoM here for alcohol intoxication. Picked up at the local [facility] and sent to the ED by police/EMS. No complaints at this time and he is not interested in detox/rehab. VSS.
Patient observed in ED for 4+ hours. On reassessment, he is ambulating with a steady gait and speech is fluent. Patient is clinically sober and stable for discharge. Patient will be transported back home via [employer]. He left in stable condition.
*Critical Care Note
Total Time (30-74mins, 75-104mins- exclusive of procedures): Not Applicable
ED Attending Note
-
Portions of this chart may have been created with voice recognition software.� Occasional wrong word or��sound alike� substitutions may have occurred due to the inherent limitations of voice recognition software.
Discharge Plan
Departure
Patient Disposition: Home (Routine Discharge)
Date of Disposition: 10/03/24
Time of Disposition: 00:13
Patient with high blood pressure during this ER visit?: No
Discharge Problem:
Alcohol intoxication
Instructions: Alcohol intoxication - ED discharge instructions
Prescriptions:
No Action
insulin aspart U-100 [Novolog FlexPen U-100 Insulin] 100 unit/mL (3 mL) Insulin Pen
9 unit SC AC Qty: 5 1RF
insulin glargine [Lantus Solostar U-100 Insulin] 100 unit/mL (3 mL) Insulin Pen
15 unit SC HS Qty: 5 1RF
(DME) pen needle, diabetic [BD Ultra-Fine Isabella Pen Needle] 32 gauge x /' Needle
Qty: 200 0RF
Rx Instructions:
As Directed
(DME) Contour Next Test Strips Strip
Qty: 200 1RF
Rx Instructions:
Test blood before each meal and HS As Directed E11.65
(DME) lancets [Color Lancets] 21 gauge Misc
Qty: 200 1RF
Rx Instructions:
Test blood sugar before each meal and HS As Directed E11.65
Referrals:
[facility] [Provider Group]
[facility] [Outside]
NONE,* [Family Provider] -
Interventions
Interventions:
*Risk Screen - Suicide Last Done: 10/02/24 20:30
*General Assessment Last Done: 10/02/24 20:30
*Neglect/Abuse Screening Last Done: 10/02/24 20:30
ED- Fall Risk Assessment Last Done: 10/02/24 20:30
*ED COVID-19 Vaccine History Last Done: 10/02/24 20:30
ED- Neurological Assessment Last Done: 10/02/24 20:30
ED-Psychological Assessment Last Done: 10/02/24 20:30
Discharge Date and Time
Print Language: BULGARIAN
[2024-10-02 22:10] VITALS: BP 119/88
[2024-10-03 00:14] VITALS: BP 128/100
== END 2024-10-03 00:30 | disposition home or self-care (01) ==
LOC: EMR 20:25
PROVIDERS: EMERGENCY PHYSICIAN Emergency Medicine
DX: F10.129 Alcohol abuse with intoxication, unspecified (principal); E11.9 Type 2 diabetes mellitus without complications; Z65.3 Problems related to other legal circumstances
CPT/HCPCS: 99282; 82962